=== PATIENT | male | born 1960 | race Caucasian/White ===

== ENCOUNTER → 2023-10-06 14:10 | Outpatient (REF) | payer OTHER, SELFPAY | LOC: HWRAD 14:10 | PROVIDERS: ATTENDING PHYSICIAN Chiropractor; FAMILY PHYSICIAN Family Medicine | DX: M54.50 Low back pain, unspecified (principal) | CPT/HCPCS: 72100 ==

== ENCOUNTER 2023-10-28 09:39 | Outpatient (RCR) | payer OTHER, SELFPAY | END 2023-10-28 23:59 | disposition home or self-care (01) | LOC: RPT 09:39 | PROVIDERS: ATTENDING PHYSICIAN Orthopaedic Surgery | DX: M17.12 Unilateral primary osteoarthritis, left knee (principal); M65.9 Synovitis and tenosynovitis, unspecified; M22.2X2 Patellofemoral disorders, left knee; Z73.6 Limitation of activities due to disability | CPT/HCPCS: 97110; 97162; 97530; 97535 ==

== ENCOUNTER 2023-11-23 11:04 | Outpatient (RCR) | payer OTHER, SELFPAY | END 2023-11-23 23:59 | disposition home or self-care (01) | LOC: RPT 11:04 | PROVIDERS: ATTENDING PHYSICIAN Orthopaedic Surgery | DX: M17.12 Unilateral primary osteoarthritis, left knee (principal); M65.9 Synovitis and tenosynovitis, unspecified; M22.2X2 Patellofemoral disorders, left knee; Z73.6 Limitation of activities due to disability | CPT/HCPCS: 97110; 97530 ==

== ENCOUNTER → 2024-01-04 09:50 | Outpatient (REF) | payer OTHER, SELFPAY | LOC: HWRAD 09:50 | PROVIDERS: ATTENDING PHYSICIAN Orthopaedic Surgery; FAMILY PHYSICIAN Family Medicine | DX: M65.9 Synovitis and tenosynovitis, unspecified (principal) | CPT/HCPCS: 73560; 73565 ==

== ENCOUNTER → 2024-01-19 13:26 | Outpatient (REF) | payer OTHER, SELFPAY | LOC: HWRAD 13:26 | PROVIDERS: ATTENDING PHYSICIAN Internal Medicine Hematology & Oncology; FAMILY PHYSICIAN Family Medicine | DX: D69.6 Thrombocytopenia, unspecified (principal) | CPT/HCPCS: 76700 ==

== ENCOUNTER 2024-04-27 13:55 | Outpatient (RCR) | payer OTHER, SELFPAY | END 2024-04-27 23:59 | disposition home or self-care (01) | LOC: RPT 13:55 | PROVIDERS: ATTENDING PHYSICIAN Orthopaedic Surgery Adult Reconstructive Orthopaedic Surgery; FAMILY PHYSICIAN Family Medicine | DX: Z47.1 Aftercare following joint replacement surgery (principal); M25.562 Pain in left knee; R26.2 Difficulty in walking, not elsewhere classified; Z96.652 Presence of left artificial knee joint; Z91.81 History of falling; Z73.6 Limitation of activities due to disability | CPT/HCPCS: 97010; 97110; 97116; 97161; 97535 ==

== ENCOUNTER 2024-05-26 09:00 | Outpatient (RCR) | payer OTHER, SELFPAY | END 2024-05-26 23:59 | disposition home or self-care (01) | LOC: RPT 09:00 | PROVIDERS: ATTENDING PHYSICIAN Orthopaedic Surgery Adult Reconstructive Orthopaedic Surgery; FAMILY PHYSICIAN Family Medicine | DX: M17.12 Unilateral primary osteoarthritis, left knee (principal); M25.562 Pain in left knee | CPT/HCPCS: 97010; 97110; 97530 ==

== ENCOUNTER 2024-06-08 09:00 | Outpatient (RCR) | payer OTHER, SELFPAY | END 2024-06-08 15:07 | disposition home or self-care (01) | LOC: RPT 09:00 | PROVIDERS: ATTENDING PHYSICIAN Orthopaedic Surgery Adult Reconstructive Orthopaedic Surgery; FAMILY PHYSICIAN Family Medicine | DX: Z47.1 Aftercare following joint replacement surgery (principal); M17.12 Unilateral primary osteoarthritis, left knee; M25.562 Pain in left knee; R26.89 Other abnormalities of gait and mobility; Z96.652 Presence of left artificial knee joint | CPT/HCPCS: 97010; 97110; 97530; 97535 ==

== ENCOUNTER → 2024-09-05 12:57 | Outpatient (REF) | payer OTHER, SELFPAY | LOC: HWRAD 12:57 | PROVIDERS: ATTENDING PHYSICIAN Family Medicine | DX: M79.641 Pain in right hand (principal) | CPT/HCPCS: 73130 ==

== ENCOUNTER → 2025-03-01 12:59 | Outpatient (REF) | payer OTHER, SELFPAY | LOC: HWRAD 12:59 | PROVIDERS: ATTENDING PHYSICIAN Family Medicine | DX: R22.32 Localized swelling, mass and lump, left upper limb (principal); M79.602 Pain in left arm; M25.512 Pain in left shoulder | CPT/HCPCS: 73030; 73060 ==

== ENCOUNTER → 2025-04-19 08:01 | Outpatient (REF) | payer OTHER, SELFPAY | LOC: PAVMRI 08:01 | PROVIDERS: ATTENDING PHYSICIAN Family Medicine | DX: R22.32 Localized swelling, mass and lump, left upper limb (principal) | CPT/HCPCS: 73218 ==